=== PATIENT | female | born 1985 | race Caucasian/White ===

== ENCOUNTER 2017-10-13 13:05 | Emergency (ER) | payer OTHER ==
[~2017-10-13] VITALS: Ht 160 cm; Wt 66.8 kg
[2017-10-13 13:06] VITALS: BP 137/85; PULSE 83; RESP 16; TEMP 98; O2SAT 99
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
[2017-10-13] MEDS ORDERED: ORPHENADRINE INJ 60 MG/2 ML AMP IM ONE (14:45)
[2017-10-13] MEDS ORDERED: KETOROLAC TROMETHAMINE 60 MG/2 ML (IM) VIAL IM ONE (14:45)
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
[2017-10-13] MEDS ORDERED: IBUP-232 PO (15:10)
[2017-10-13 15:42] VITALS: BP 128/78
== END 2017-10-13 15:43 | disposition home or self-care (01) ==
LOC: NEPD 13:05
DX: S16.1XXA Strain of muscle, fascia and tendon at neck level, initial encounter (principal); V43.52XA Car driver injured in collision with other type car in traffic accident, initial encounter; F17.200 Nicotine dependence, unspecified, uncomplicated
CPT/HCPCS: 71046; 72125; 96372; 99285; J1885; J2360